=== PATIENT | female | born 1935 | race Caucasian/White ===

== ENCOUNTER 2019-03-29 14:46 | Inpatient (IN) ==
[2019-03-29] MEDS ORDERED: Ondansetron ODT 4 MG TAB.RAPDIS SL PRN (16:46)
[2019-03-29] MEDS ORDERED: Acetaminophen 325 MG TABLET PO PRN (16:46)
[2019-03-29] MEDS ORDERED: *HR* Promethazine 25 MG/ML VIAL IVP PRN (16:46)
[2019-03-29] MEDS ORDERED: Naloxone 0.4 MG/ML INJ IVP PRN (16:46)
[2019-03-29 17:31] LABS: Basophils % 0.2 %; Immature Granulocytes % 0.3 % (0-4)
[2019-03-29 17:39] LABS: Prothrombin Time 11.6 Seconds (9.4-12.1)
[2019-03-29 17:45] LABS: Eosinophils # 0.1 K/mcL (0.0-0.6); Eosinophils % 1.2 %; Hematocrit 36.4 % (35.3-44.9); Immature Platelets 4.6 % (1.1-6.1); Lymphocytes # 1.3 K/mcL (0.6-4.6); Lymphocytes % 14.9 %; Mean Corpuscular HGB Conc 31.3 g/dL (31.6-35.5); Mean Corpuscular Hemoglobin 29.5 pg (28.0-33.3); Mean Corpuscular Volume 94.1 fL (83.0-100.0); Mean Platelet Volume 10.5 fL (9.4-12.4); Monocytes # 0.5 K/mcL (0.0-1.3); Monocytes % 6.1 %; Neutrophils # 6.9 K/mcL (1.6-8.9); Platelet Count 222 K/mcL (140-400); Red Blood Count 3.87 M/mcL (3.82-4.97); Red Cell Distribution Width 13.2 % (11.5-14.5); Segmented Neutrophils % 77.3 %; White Blood Count 8.9 K/mcL (4.3-11.1)
--- NOTE | 2019-03-29 17:45 | Internal Med History&Physical ---
Date of Encounter: 03/29/19 Time of Encounter: 17:40 Internal Medicine - H&P: HPI Chief complaint: Nausea and Vomiting Admitted From: Home Plans for Post Hospital Care: Home History of present illness: Ms. Navarro is a 83 year old female with history of failure to thrive secondary to scoliosis and multiple fractures of her lower extremities leaving her chronically debilitated, chronic respiratory failure secondary to scoliosis on 3 L oxygen outpatient, and recurrent ileus presents with nausea and vomiting and concern for ileus. Patient lives with family but gets around the clock care. Caregivers noted that patient has had nausea and vomiting and it appears that emesis is fecal material. Recently fractured her left knee over Mother's Day and has not been able to transfer. Because of this, she has developed fecal impaction because she does not want to have bowel movements on a bedpan. Vomiting has resolved but patient still nauseous. Having some bilateral lower quadrant abdominal pain. Patient was transferred here from [place] in [place]. Probably had episode of A. fib with RVR at that hospital but vitals currently stable with heart rate of 77. KUB with dilation of loops of small bowel concerning for ileus. Patient apparently has had numerous ileus in the past after surgeries. Past Med Surg Social Fam HX - Past Medical History Medical history: arthritis, atrial fibrillation, CHF, COPD, GERD, hypertension, other Additional medical history: chronic pain, scoliosis, blind,hx of fx femur and knee on rt side. frequent uti, Psychiatric history: anxiety, depression - Past Surgical History Surgical History: cataract, cholecystectomy, hip replacement, orthopedic, other, other Additional surgical history: IM Nailing Bilateral, Right Femur and Knee Surgery, Bladder Surgery - Social History Smoking Status: Never smoker Smokeless Tobacco Status: No Alcohol use: none Drug use: none - Family History Sister History Unknown: Yes Living Status: Hx Family Cardiac Disorders: Yes Father Living Status: Mother Living Status: Internal Medicine - H&P: Meds Albuterol Sulfate [Albuterol Inhaler] 2 puff IH Q4HR PRN 07/19/15 [History] Aspirin 325 mg PO DAILY 07/19/15 [History] Cholecalciferol (Vitamin D3) [Vitamin D] 1,000 unit PO DAILY 07/19/15 [History] ClonazePAM [Klonopin] 1 mg PO TID 07/19/15 [History] Docusate [Colace] 100 mg PO BID 07/19/15 [History] Diltiazem CD (24hr) [Cardizem CD] 120 mg PO DAILY #30 cap.er.24h 07/29/15 [Rx] Omeprazole [PriLOSEC] 20 mg PO DAILY 09/08/15 [History] Oxygen 3 each .ROUTE AD 01/10/16 [History] OxyCODONE/APAP 5/325 [Percocet 5/325 MG] 1 each PO Q12HR PRN 08/13/18 [History] Polyethylene Glycol 3350 [MiraLAX] 17 gm PO DAILY 08/13/18 [History] Nitroglycerin 0.1 mg TD 0730 patch.td24 08/16/18 [Rx] OxyCODONE/APAP 10/325 [Percocet 10/325 MG] 1 each PO Q6HR #10 tablet 08/16/18 [Rx] BuPROPion [Wellbutrin] 75 mg PO BID 03/19/19 [History] Ciprofloxacin [Cipro] 500 mg PO BID #10 tablet 03/19/19 [Rx] Furosemide [Lasix] 20 mg PO DAILY 03/19/19 [History] Sennosides/Docusate Sodium [Docusate Sodium-Sennosides Tab] 1 each PO BID #14 tablet 03/19/19 [Rx] Allergy/AdvReac Type Severity Reaction Status Date / Time codeine Allergy Hives Verified 03/19/19 18:10 Penicillins [PCN] Allergy Rash Verified 03/19/19 18:10 Buspirone AdvReac Gastrointestinal Verified 03/19/19 18:10 Upset nitrofurantoin AdvReac Gastrointestinal Verified 03/19/19 18:10 [From Macrodantin] Upset promethazine AdvReac Confusion Verified 03/19/19 18:10 Sulfa (Sulfonamide AdvReac Rash Verified 03/19/19 18:10 Antibiotics) tramadol AdvReac Gastrointestinal Verified 03/19/19 18:10 Upset All Systems PM: A 10-system review of systems was performed and is negative for pertinent findings except as documented above in the HPI. Review of systems: General: Fevers / Chills / Weight loss / Night sweats Eyes: Blurry Vision / Change in Vision HENT: Ear Pain / Ear Drainage / Rhinorrhea / Throat Pain / Lymphadenopathy Cardiovascular: Chest Pain / Palpatations / Orthopnea / AGRAWAL / Weight gain Lungs: Dyspnea / Wheezing / Cough / Sputum production / Pleurisy Abdomen: Abdomen pain / Abdominal distention / Nausea / Vomiting / Diarrhea / Const : Dysuria / Urinary Frequency / Urinary Urgency / Hematuria Extremities: LE edema / Ext pain / Ext erythema Skin: Rashes / Abrasions / Contusions Psych: Hallucinations / Anxiety / Depression Neuro: Weakness / Numbness / Tingling / Facial Droop / Dysphagia - Constitutional Vitals: Temp Pulse Resp BP Pulse Ox 98.0 F 77 16 147/80 97 03/29/19 17:05 03/29/19 17:05 03/29/19 17:05 03/29/19 17:05 03/29/19 17:05 Exam: General: Ill-appearing and in no acute distress. Appears chronically ill with severe scoliosis HEENT: No erythema of posterior pharynx. No exudates. Lymphatics: No mandibular or cervical lymphadenopathy Cardiovascular: RRR. No murmurs. No chest wall tenderness. Lungs: Clear to auscelltation bilaterally. Regular chest rise. Abdomen: Distended with mild lower quadrant tenderness. No rebound or gaurding. Nl bowel sounds. Extremities: No edema. 2+ pulses radial and pedal pulses Skin: No rahses, abrasions, or contusions. Nl cap refill. Psych: Nl attention. A&Ox3 Neuro: turkey pinner II-XII intact. Sensation to light touch and pinprick intact. Internal Med - H&P Results - Labs CBC & Chem 7: 03/29/19 17:13 03/29/19 17:13 - Impressions ITS Impressions Chest X-Ray 03/29/19 16:44 IMPRESSION: Examination is significantly compromised due to marked scoliosis. Within this limitation, no definite cardiopulmonary abnormality. D/ / Lorrie Pina MD / Lorrie Pina MD Interpreting Provider: Lorrie Pina MD - Assessment and Plan (1) Ileus, unspecified Current Visit: Yes Status: Acute Assessment and plan: Patient with history of ileus following surgeries and recent inability to transfer resulting in fecal impaction presents with concern for vomiting fecal material in the setting of KUB with evidence of small bowel ileus. -Likely fecal impaction possibly with some degree of ileus -Per daughter, this all started when patient broke her knee because she lost the ability to transfer and refuses to have a BM in a bedpan -Suspect this will resolve with aggressive bowel regimen from below PLAN: - Suppository once. If does not work, enema once. - Scheduled senna - Repeat KUB in the morning - If develops nausea vomiting overnight will place NG tube - If does not resolve by tomorrow may consult surgery for further recommendations (2) Fecal impaction Current Visit: Yes Status: Acute Assessment and plan: See above (3) Atrial fibrillation with RVR Current Visit: Yes Status: Acute Assessment and plan: History of atrial fibrillation on diltiazem. Had episode of RVR at outside hospital and briefly needed diltiazem drip. Rates currently controlled. - Continue home diltiazem - If rates higher overnight, treat with IV pushes of diltiazem (4) Failure to thrive Current Visit: Yes Status: Acute Assessment and plan: History of failure to thrive secondary to scoliosis and multiple fractures of her lower extremities leaving her chronically debilitated. - May need resources for higher level of care before discharge Qualifiers: Failure to thrive age range: in adult Qualified Code(s): R62.7 - Adult failure to thrive - Time Spent With Patient Total time spent is greater than 50% in coordination of care (as documented) at patient's floor/unit and/or counseling patient: Greater than 35 minutes
[2019-03-29 17:49] LABS: Hemoglobin 11.4 g/dL (11.5-15.4)
[2019-03-29 17:56] LABS: Alanine Aminotransferase 6 Units/L (7-52); Albumin 3.5 g/dL (3.5-5.7); Albumin/Globulin Ratio 1.3 (1.1-2.2); Alkaline Phosphatase 66 Units/L (34-104); Aspartate Amino Transferase 17 Units/L (13-39); BUN/Creatinine Ratio 17 (6-26); Bilirubin,Total 0.3 mg/dL (0.3-1.0); Blood Urea Nitrogen 13 mg/dL (8-23); Calcium 8.9 mg/dL (8.6-10.3); Carbon Dioxide 31 mEq/L (23-29); Chloride 96 mEq/L (98-107); Globulin 2.8 g/dL (2.4-3.5); Glucose 92 mg/dL (70-105); Osmolality,Calculated 296 (280-300); Potassium 4.1 mEq/L (3.5-5.1); Sodium 143 mEq/L (136-145); Total Protein 6.3 g/dL (6.4-8.9); Troponin I 0.04 ng/mL (< 0.04); eGFR For African Americans > 60 (> 60); eGFR For Non-African Americans > 60 (> 60)
[2019-03-29] MEDS ORDERED: Milk and Molasses Enema 200 ML RC ONE (18:15)
[2019-03-29] MEDS ORDERED: *HR* OxyCODONE/APAP 5/325 TABLET PO PRN (18:16)
[2019-03-29] MEDS: Sennosides/Docusate Sodium TABLET PO SCH (22:25)
[2019-03-29] MEDS: clonazePAM 1 MG TABLET PO SCH (22:25)
[2019-03-30 05:36] LABS: Basophils % 0.2 %; Eosinophils # 0.1 K/mcL (0.0-0.6); Immature Granulocytes % 0.4 % (0-4); Lymphocytes # 1.3 K/mcL (0.6-4.6); Lymphocytes % 13.7 %; Mean Corpuscular HGB Conc 31.3 g/dL (31.6-35.5); Mean Corpuscular Hemoglobin 29.4 pg (28.0-33.3); Mean Corpuscular Volume 94.1 fL (83.0-100.0); Mean Platelet Volume 10.2 fL (9.4-12.4); Monocytes # 0.7 K/mcL (0.0-1.3); Monocytes % 7.3 %; Neutrophils # 7.2 K/mcL (1.6-8.9); Platelet Count 214 K/mcL (140-400); Red Cell Distribution Width 13.1 % (11.5-14.5); Segmented Neutrophils % 77.4 %; White Blood Count 9.4 K/mcL (4.3-11.1)
[2019-03-30 05:56] LABS: BUN/Creatinine Ratio 19 (6-26); Blood Urea Nitrogen 13 mg/dL (8-23); Calcium 8.8 mg/dL (8.6-10.3); Carbon Dioxide 30 mEq/L (23-29); Chloride 100 mEq/L (98-107); Glucose 89 mg/dL (70-105); Osmolality,Calculated 290 (280-300); Potassium 3.7 mEq/L (3.5-5.1); Sodium 140 mEq/L (136-145); eGFR For African Americans > 60 (> 60); eGFR For Non-African Americans > 60 (> 60)
--- NOTE | 2019-03-30 08:12 | Internal Med Progress Note ---
Hospitalist Progress Note - Encounter Date of Encounter: 03/30/19 Time of Encounter: 08:09 - Subjective Interval History: Reportedly had a large BM this morning. Denies nausea and abdominal pain. Taking oral medications. - Exam Vitals: Temp Pulse Resp BP Pulse Ox 98.1 F 85 16 151/77 96 03/30/19 06:53 03/30/19 06:53 03/30/19 06:53 03/30/19 06:53 03/30/19 06:53 Exam: General: Ill-appearing and in no acute distress. Appears chronically ill with severe scoliosis HEENT: No erythema of posterior pharynx. No exudates. Lymphatics: No mandibular or cervical lymphadenopathy Cardiovascular: RRR. No murmurs. No chest wall tenderness. Lungs: Clear to auscelltation bilaterally. Regular chest rise. Abdomen: Distended with mild lower quadrant tenderness. No rebound or gaurding. Nl bowel sounds. Extremities: No edema. 2+ pulses radial and pedal pulses Skin: No rahses, abrasions, or contusions. Nl cap refill. Psych: Nl attention. A&Ox3 Neuro: ad writer II-XII intact. Sensation to light touch and pinprick intact. - Assessment and Plan (1) Ileus, unspecified Current Visit: Yes Status: Acute Assessment and Plan: Patient with history of ileus following surgeries and recent inability to transfer resulting in fecal impaction presents with concern for vomiting fecal material in the setting of KUB with evidence of small bowel ileus. -Likely fecal impaction possibly with some degree of ileus -Per daughter, this all started when patient broke her knee because she lost the ability to transfer and refuses to have a BM in a bedpan -Suspect this will resolve with aggressive bowel regimen from below -Patient had large BM this morning. Will start laxatives from above and repeat KUB to monitor stool burden PLAN: - Scheduled senna and lactulose - KUB - If develops nausea vomiting will place NG tube (2) Fecal impaction Current Visit: Yes Status: Acute Assessment and Plan: See above (3) Atrial fibrillation with RVR Current Visit: Yes Status: Acute Assessment and Plan: History of atrial fibrillation on diltiazem. Had episode of RVR at outside hospital and briefly needed diltiazem drip. Rates currently controlled. - Continue home diltiazem (4) Failure to thrive Current Visit: Yes Status: Acute Assessment and Plan: History of failure to thrive secondary to scoliosis and multiple fractures of her lower extremities leaving her chronically debilitated. - May need resources for higher level of care before discharge DVT Prophylaxis: LMWH - Time Spent with Patient Total time spent is greater than 50% in coordination of care (as documented) at patient's floor/unit and/or counseling patient: 25 - 35 minutes Plan of Care Discussed with: patient Internal Medicine: Result - Labs CBC & Chem 7: 03/30/19 05:18 03/30/19 05:18 Labs: Short CBC 03/29/19 03/30/19 Range/Units 17:13 05:18 WBC 8.9 9.4 (4.3-11.1) K/mcL Hgb 11.4 L D 10.0 L (11.5-15.4) g/dL Hct 36.4 32.0 L (35.3-44.9) % Plt Count 222 214 (140-400) K/mcL Neutrophils # 6.9 7.2 (1.6-8.9) K/mcL BMP 03/29/19 03/30/19 17:13 05:18 Sodium 143 140 Potassium 4.1 3.7 Chloride 96 L 100 Carbon Dioxide 31 H 30 H BUN 13 13 Creatinine 0.77 0.70 Glucose 92 89 Calcium 8.9 8.8 Cardiac Enzymes 03/29/19 Range/Units 17:13 Troponin I 0.04 H* (< 0.04) ng/mL Liver Function 03/29/19 Range/Units 17:13 Total Bilirubin 0.3 (0.3-1.0) mg/dL AST 17 (13-39) Units/L ALT 6 L (7-52) Units/L Alkaline Phosphatase 66 (34-104) Units/L Albumin 3.5 (3.5-5.7) g/dL - ABG Interpretation ABG results: PT/INR, D-dimer PT 11.6 Seconds (9.4-12.1) 03/29/19 17:13 - Impressions Impressions Chest X-Ray 03/29/19 16:44 IMPRESSION: Examination is significantly compromised due to marked scoliosis. Within this limitation, no definite cardiopulmonary abnormality. D/ / Lorrie Pina MD / Lorrie Pina MD Interpreting Provider: Lorrie Pina MD Consult Discharge Plan - Plan Referrals: Thierno Chen MD [Primary Care Provider] - (4) Failure to thrive Qualifiers: Failure to thrive age range: in adult Qualified Code(s): R62.7 - Adult failure to thrive
[2019-03-30] MEDS: Aspirin 325 MG TABLET PO SCH (08:16)
[2019-03-30] MEDS: clonazePAM 1 MG TABLET PO SCH ×3 (08:16→20:19)
[2019-03-30] MEDS: Furosemide 20 MG TABLET PO SCH (08:16)
[2019-03-30] MEDS: Sennosides/Docusate Sodium TABLET PO SCH ×2 (08:16→20:19)
[2019-03-30] MEDS: Bisacodyl 10 MG RECTAL SUPPOSITORY RC SCH (08:17)
[2019-03-30] MEDS: Lactulose Oral Soln 20 GM/30 ML UDC PO SCH ×3 (08:17→20:19)
[2019-03-30] MEDS ORDERED: Diltiazem CD (24hr) 120 MG CAPSULE PO SCH (09:00)
[2019-03-30] MEDS ORDERED: *HR* Metoprolol 5 MG/5 ML VIAL IVP ONE (21:27)
[2019-03-30] MEDS ORDERED: *HR* Metoprolol 5 MG/5 ML VIAL IVP PRN (21:46)
[2019-03-30] MEDS ORDERED: 0.9 % Sodium Chloride 250 ML IV ONE (23:06)
[2019-03-31] MEDS: *HR* Enoxaparin 40 MG/0.4 ML SYRINGE SQ SCH (05:56)
[2019-03-31] MEDS: clonazePAM 1 MG TABLET PO SCH ×3 (08:22→20:01)
[2019-03-31] MEDS: Sennosides/Docusate Sodium TABLET PO SCH ×2 (08:22→20:01)
[2019-03-31] MEDS: Lactulose Oral Soln 20 GM/30 ML UDC PO SCH ×2 (08:23→20:00)
[2019-03-31] MEDS: Furosemide 20 MG TABLET PO SCH (08:23)
[2019-03-31] MEDS: Aspirin 325 MG TABLET PO SCH (08:23)
[2019-03-31] MEDS: Bisacodyl 10 MG RECTAL SUPPOSITORY RC SCH (08:23)
[2019-03-31] MEDS ORDERED: Ringers Solution, Lactated 500 ML IVC ONE (11:06)
--- NOTE | 2019-03-31 11:15 | Internal Med Progress Note ---
Hospitalist Progress Note - Encounter Date of Encounter: 03/31/19 Time of Encounter: 11:12 - Subjective Interval History: Patient has had multiple bowel movements over the last 24 hours. KUB this morning with resolution of ileus and no stool seen in bowel. Patient denies nausea or pains morning. Talked to daughter over the phone and will not be able to set up caregiving until tomorrow morning so request the patient's in the hospital until tomorrow. - Exam Vitals: Temp Pulse Resp BP Pulse Ox 98.3 F 74 16 153/81 96 03/31/19 07:00 03/31/19 07:00 03/31/19 07:00 03/31/19 07:00 03/31/19 07:00 Exam: General: Ill-appearing and in no acute distress. Appears chronically ill with severe scoliosis HEENT: No erythema of posterior pharynx. No exudates. Lymphatics: No mandibular or cervical lymphadenopathy Cardiovascular: RRR. No murmurs. No chest wall tenderness. Lungs: Clear to auscelltation bilaterally. Regular chest rise. Abdomen: Distended with mild lower quadrant tenderness. No rebound or gaurding. Nl bowel sounds. Extremities: No edema. 2+ pulses radial and pedal pulses Skin: No rahses, abrasions, or contusions. Nl cap refill. Psych: Nl attention. A&Ox3 Neuro: mixer operator tablets II-XII intact. Sensation to light touch and pinprick intact. - Assessment and Plan (1) Ileus, unspecified Current Visit: Yes Status: Acute Assessment and Plan: Patient with history of ileus following surgeries and recent inability to transfer resulting in fecal impaction presents with concern for vomiting fecal material in the setting of KUB with evidence of small bowel ileus. -Likely fecal impaction possibly with some degree of ileus -Per daughter, this all started when patient broke her knee because she lost the ability to transfer and refuses to have a BM in a bedpan -Suspect this will resolve with aggressive bowel regimen from below -Patient with many large bowel movements over the last 24 hours and KUB with resolution of ileus. Back off on bowel regimen. PLAN: - Scheduled senna and lactulose tid --> bid - Daughter told to get swanson up to commode once per day to try to get her to have a bowel movement at home (2) Fecal impaction Current Visit: Yes Status: Acute Assessment and Plan: See above (3) Atrial fibrillation with RVR Current Visit: Yes Status: Acute Assessment and Plan: History of atrial fibrillation on diltiazem. Had episode of RVR at outside hospital and briefly needed diltiazem drip. Rates currently controlled. - Continue home diltiazem (4) Failure to thrive Current Visit: Yes Status: Acute Assessment and Plan: History of failure to thrive secondary to scoliosis and multiple fractures of her lower extremities leaving her chronically debilitated. Daughter inquiring about status of right knee (previously fractured) to see if it is stable enough for transfers to the [facility]. We will repeat x-ray of this today. - May need resources for higher level of care before discharge Internal Medicine: Result - Labs CBC & Chem 7: 03/30/19 05:18 03/30/19 05:18 - ABG Interpretation ABG results: PT/INR, D-dimer PT 11.6 Seconds (9.4-12.1) 03/29/19 17:13 - Impressions Impressions KUB X-Ray 03/31/19 07:09 IMPRESSION: 1. No significant stool burden 2. Decreased distention of small bowel loops D/ / Marcelino Ventura MD / Marcelino Ventura MD Interpreting Provider: Marcelino Ventura MD Consult Discharge Plan - Plan Referrals: Thierno Chen MD [Primary Care Provider] - (4) Failure to thrive Qualifiers: Failure to thrive age range: in adult Qualified Code(s): R62.7 - Adult failure to thrive
[2019-04-01] MEDS: *HR* Enoxaparin 40 MG/0.4 ML SYRINGE SQ SCH (05:54)
[2019-04-01] MEDS ORDERED: *HR* OxyCODONE/APAP 5/325 TABLET PO PRN (07:29)
[2019-04-01] MEDS: clonazePAM 1 MG TABLET PO SCH ×3 (07:54→20:55)
[2019-04-01] MEDS: Diltiazem CD (24hr) 120 MG CAPSULE PO SCH ×2 (07:54→07:56)
[2019-04-01] MEDS: Lactulose Oral Soln 20 GM/30 ML UDC PO SCH ×2 (07:54→20:56)
[2019-04-01] MEDS: Bisacodyl 10 MG RECTAL SUPPOSITORY RC SCH (07:54)
[2019-04-01] MEDS: Sennosides/Docusate Sodium TABLET PO SCH ×2 (07:54→20:56)
[2019-04-01] MEDS: Aspirin 325 MG TABLET PO SCH (07:54)
[2019-04-01] MEDS: Furosemide 20 MG TABLET PO SCH (07:54)
--- NOTE | 2019-04-01 10:44 | Electrocardiograph Report ---
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
--- NOTE | 2019-04-01 12:38 | Discharge Summary ---
Date of Encounter: 04/01/19 Time of Encounter: 12:34 - Discharge Diagnosis (1) Ileus, unspecified Priority: Primary Status: Acute (2) Fecal impaction Priority: Secondary Status: Acute (3) Atrial fibrillation with RVR Priority: Secondary Status: Acute (4) Failure to thrive Priority: Secondary Status: Acute Qualifiers: Failure to thrive age range: in adult Qualified Code(s): R62.7 - Adult failure to thrive Hospital course: Ms. Navarro is a 83 year old female with history of ileus following surgeries and multiple LE fractues resulting in inability to transfer resulting in fecal impaction presents with concern for vomiting fecal material in the setting of KUB with evidence of small bowel ileus. Patient is status post an aggressive bowel regimen and had many large bowel movements during admission with follow-up KUB with resolution of ileus. Figure primary reason patient got fecal impaction was due to inability to transfer to a commode after she broke her right distal femur/proximal tibia and refusal to defecate into a bedpan. Repeat right knee imaging with evidence of healing - should be okay for patient to transfer to a commode although may be limited by pain. Also did not like MiraLAX so was not taking it - switched to lactulose in the hospital and for discharge for goal of 1-2 bowel movements per day. Also on oxycodone at home. Encouraged daughter to only give pain medication when patient is pain. She will follow-up with her primary care provider. Discharge discussed with: family - Time Spent with Patient Total time spent providing and/or coordinating discharge services: - Discharge Medications Prescriptions: New Lactulose 10 gm PO BID #2 bottle Continued Diltiazem CD (24hr) [Cardizem CD] 120 mg PO DAILY #30 cap.er.24h Cholecalciferol (Vitamin D3) [Vitamin D] 1,000 unit PO DAILY Aspirin 325 mg PO BID Albuterol Sulfate [Albuterol Inhaler] 2 puff IH Q4HR PRN PRN Reason: Shortness Of Breath Docusate [Colace] 100 mg PO BID PRN PRN Reason: Constipation ClonazePAM [Klonopin] 1 mg PO TID Omeprazole [PriLOSEC] 20 mg PO DAILY OxyCODONE/APAP 5/325 [Percocet 5/325 MG] 1 each PO BID PRN PRN Reason: Breakthrough Pain OxyCODONE/APAP 10/325 [Percocet 10/325 MG] 1 each PO Q6HR #10 tablet Nitroglycerin 0.1 mg TD 0730 patch.td24 BuPROPion [Wellbutrin] 75 mg PO BID Sennosides/Docusate Sodium [Docusate Sodium-Sennosides Tab] 1 each PO BID #14 tablet Discontinued Amoxicillin [Amoxil] 500 mg PO BID Polyethylene Glycol 3350 [MiraLAX] 17 gm PO DAILY PRN PRN Reason: Constipation Home Medications: Albuterol Sulfate [Albuterol Inhaler] 2 puff IH Q4HR PRN 07/19/15 [History] Aspirin 325 mg PO BID 07/19/15 [History] Cholecalciferol (Vitamin D3) [Vitamin D] 1,000 unit PO DAILY 07/19/15 [History] ClonazePAM [Klonopin] 1 mg PO TID 07/19/15 [History] Docusate [Colace] 100 mg PO BID PRN 07/19/15 [History] Diltiazem CD (24hr) [Cardizem CD] 120 mg PO DAILY #30 cap.er.24h 07/29/15 [Rx] Omeprazole [PriLOSEC] 20 mg PO DAILY 09/08/15 [History] OxyCODONE/APAP 5/325 [Percocet 5/325 MG] 1 each PO BID PRN 08/13/18 [History] Nitroglycerin 0.1 mg TD 0730 patch.td24 08/16/18 [Rx] OxyCODONE/APAP 10/325 [Percocet 10/325 MG] 1 each PO Q6HR #10 tablet 08/16/18 [Rx] BuPROPion [Wellbutrin] 75 mg PO BID 03/19/19 [History] Sennosides/Docusate Sodium [Docusate Sodium-Sennosides Tab] 1 each PO BID #14 tablet 03/19/19 [Rx] Lactulose 10 gm PO BID #2 bottle 04/01/19 [Rx] Allergies/Adverse Reactions: Allergy/AdvReac Type Severity Reaction Status Date / Time codeine Allergy Hives Verified 03/19/19 18:10 Penicillins [PCN] Allergy Rash Verified 03/19/19 18:10 Buspirone AdvReac Gastrointestinal Verified 03/19/19 18:10 Upset nitrofurantoin AdvReac Gastrointestinal Verified 03/19/19 18:10 [From Macrodantin] Upset promethazine AdvReac Confusion Verified 03/19/19 18:10 Sulfa (Sulfonamide AdvReac Rash Verified 03/19/19 18:10 Antibiotics) tramadol AdvReac Gastrointestinal Verified 03/19/19 18:10 Upset Date of admission: 03/29/19 16:19 Primary care physician: Thierno Chen MD Consults: 03/29/19 18:18 Consult to Crusher Plant Operator [CONS] Routine Reason for SW Consult: Home helpers HH, Sen's oxygen - Constitutional Vitals: Temp Pulse Resp BP Pulse Ox 98.4 F 83 20 137/78 98 04/01/19 11:14 04/01/19 11:14 04/01/19 11:14 04/01/19 11:14 04/01/19 11:14 Exam: General: Ill-appearing and in no acute distress. Appears chronically ill with severe scoliosis HEENT: No erythema of posterior pharynx. No exudates. Lymphatics: No mandibular or cervical lymphadenopathy Cardiovascular: RRR. No murmurs. No chest wall tenderness. Lungs: Clear to auscelltation bilaterally. Regular chest rise. Abdomen: Distended with mild lower quadrant tenderness. No rebound or gaurding. Nl bowel sounds. Extremities: No edema. 2+ pulses radial and pedal pulses Skin: No rahses, abrasions, or contusions. Nl cap refill. Psych: Nl attention. A&Ox3 Neuro: mechanical test technician II-XII intact. Sensation to light touch and pinprick intact. - Patient Status Disposition: Home, Self-Care Condition: Good Functional capacity at discharge: bed bound Overall status at discharge: patient is back to baseline - Discharge Instructions Follow Up With: Thierno Chen MD [Primary Care Provider] - - Diet and Activity Activity: resume usual activities as tolerated Diet: regular diet
[2019-04-01] MEDS ORDERED: *HR* Metoprolol 5 MG/5 ML VIAL IVP ONE (13:16)
--- NOTE | 2019-04-01 14:05 | Internal Med Progress Note ---
Hospitalist Progress Note - Encounter Date of Encounter: 04/01/19 Time of Encounter: 14:03 - Subjective Interval History: Patient did not discharge today because flipped into atrila fibrillation with RVR. BP stable. Daughter says patient "doesn't look right" - Exam Vitals: Temp Pulse Resp BP Pulse Ox 97.9 F 83 20 104/67 98 04/01/19 13:30 04/01/19 11:14 04/01/19 11:14 04/01/19 13:30 04/01/19 11:14 Exam: General: Ill-appearing and in no acute distress. Appears chronically ill with severe scoliosis HEENT: No erythema of posterior pharynx. No exudates. Lymphatics: No mandibular or cervical lymphadenopathy Cardiovascular: RRR. No murmurs. No chest wall tenderness. Lungs: Clear to auscelltation bilaterally. Regular chest rise. Abdomen: Distended with mild lower quadrant tenderness. No rebound or gaurding. Nl bowel sounds. Extremities: No edema. 2+ pulses radial and pedal pulses Skin: No rahses, abrasions, or contusions. Nl cap refill. Psych: Nl attention. 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 Sensation to light touch and pinprick intact. - Assessment and Plan (1) Atrial fibrillation with RVR Current Visit: Yes Status: Acute Assessment and Plan: History of atrial fibrillation on diltiazem. Had episode of RVR at outside hospital and briefly needed diltiazem drip. Flipped into RVR this morning. Diltiazem was held yesterday for unclear reasons. Feel that once she is back stable on her home diltiazem should stabilize. - Continue home diltiazem - Metoprolol pushes prn (2) Ileus, unspecified Current Visit: Yes Status: Acute Assessment and Plan: Patient with history of ileus following surgeries and recent inability to transfer resulting in fecal impaction presents with concern for vomiting fecal material in the setting of KUB with evidence of small bowel ileus. -Likely fecal impaction possibly with some degree of ileus -Per daughter, this all started when patient broke her knee because she lost the ability to transfer and refuses to have a BM in a bedpan -Suspect this will resolve with aggressive bowel regimen from below -Patient with many large bowel movements over the last 24 hours and KUB with resolution of ileus. PLAN: - Scheduled senna and lactulose bid - Daughter told to get swanson up to commode once per day to try to get her to have a bowel movement at home (3) Fecal impaction Current Visit: Yes Status: Acute Assessment and Plan: See above (4) Failure to thrive Current Visit: Yes Status: Acute Assessment and Plan: History of failure to thrive secondary to scoliosis and multiple fractures of her lower extremities leaving her chronically debilitated. - May need resources for higher level of care before discharge Internal Medicine: Result - Labs CBC & Chem 7: 03/30/19 05:18 03/30/19 05:18 - ABG Interpretation ABG results: PT/INR, D-dimer PT 11.6 Seconds (9.4-12.1) 03/29/19 17:13 Consult Discharge Plan - Plan Referrals: Thierno Chen MD [Primary Care Provider] - Prescriptions: Lactulose 10 gm PO BID #2 bottle (4) Failure to thrive Qualifiers: Failure to thrive age range: in adult Qualified Code(s): R62.7 - Adult failure to thrive
[2019-04-01] MEDS ORDERED: Dextrose Gel 15 GM/37.5 ML TUBE PO PRN (17:01)
[2019-04-01] MEDS ORDERED: *HR* Heparin 5,000 UNIT/ML VIAL IVP PRN ×2 (17:04)
[2019-04-01] MEDS ORDERED: *HR* Heparin 5,000 UNIT/ML VIAL IVP ONE (17:04)
[2019-04-01] MEDS ORDERED: Isovue-370 500 ML BOTTLE IVP ONE (17:10)
[2019-04-01] MEDS ORDERED: Heparin 25,000 UNIT/250 ML D5W 25,000 UNIT/250 ML IV.SOLN IVC SCH (17:15)
[2019-04-01] MEDS: Nafcillin 2,000 MG in D5% in Water (Mini-Bag+) 100 ML IVPB SCH ×2 (18:41→23:58)
[2019-04-02 04:49] LABS: Hematocrit 35.2 % (35.3-44.9); Hemoglobin 11.3 g/dL (11.5-15.4); Mean Corpuscular HGB Conc 32.1 g/dL (31.6-35.5); Mean Corpuscular Hemoglobin 29.3 pg (28.0-33.3); Mean Corpuscular Volume 91.2 fL (83.0-100.0); Mean Platelet Volume 10.8 fL (9.4-12.4); Platelet Count 254 K/mcL (140-400); Red Blood Count 3.86 M/mcL (3.82-4.97); Red Cell Distribution Width 13.2 % (11.5-14.5); White Blood Count 9.1 K/mcL (4.3-11.1)
[2019-04-02 05:09] LABS: BUN/Creatinine Ratio 23 (6-26); Blood Urea Nitrogen 19 mg/dL (8-23); Calcium 8.9 mg/dL (8.6-10.3); Carbon Dioxide 38 mEq/L (23-29); Chloride 92 mEq/L (98-107); Glucose 119 mg/dL (70-105); Osmolality,Calculated 287 (280-300); Potassium 2.8 mEq/L (3.5-5.1); Sodium 137 mEq/L (136-145); eGFR For African Americans > 60 (> 60); eGFR For Non-African Americans > 60 (> 60)
[2019-04-02] MEDS: Nafcillin 2,000 MG in D5% in Water (Mini-Bag+) 100 ML IVPB SCH ×2 (06:01→12:03)
[2019-04-02] MEDS ORDERED: Insulin LISPRO 300 UNITS/3 ML VIAL SQ SCH (07:30)
[2019-04-02] MEDS: Lactulose Oral Soln 20 GM/30 ML UDC PO SCH ×2 (08:55→20:46)
[2019-04-02] MEDS: clonazePAM 1 MG TABLET PO SCH ×3 (08:56→20:45)
[2019-04-02] MEDS: Aspirin 325 MG TABLET PO SCH ×2 (08:56→09:03)
[2019-04-02] MEDS: Sennosides/Docusate Sodium TABLET PO SCH ×2 (08:56→20:45)
[2019-04-02] MEDS: Diltiazem CD (24hr) 120 MG CAPSULE PO SCH (09:03)
[2019-04-02] MEDS: Bisacodyl 10 MG RECTAL SUPPOSITORY RC SCH (09:05)
--- NOTE | 2019-04-02 09:41 | Infectious Disease Consult ---
Infectious Disease-Consult - Encounter Date/Time Date of Encounter: 04/02/19 Time of Encounter: 09:37 - Data of Consult Patient: new to practice Reason for consult: "MSSA in urine, concern for MSSA bacteremia of unknwon etiolog" Consult date: 04/02/19 Requesting Physician: Marcelino Hilton Primary Care Provider: Thierno Chen MD - HPI HPI: Ms. Navarro is an 83 year old female with a past medical history of FTT secondary to chronic debilitation from scoliosis, multiple compression fractures and lower extremity fractures, a-fib, CHF, COPD on O2 at home, GERD, HTN, and anxiety/depression. The patient was admitted to the hospital 03/29/19 for elevated troponin. We are consulted 04/02/19 for MSSA in the urine. Briefly, the patient is an 83-year-old female with past medical history as stated above. Patient presented to [facility] emergency department complaints of abdominal pain and vomiting what appeared to be fecal material. Upon arrival, she was afebrile. She is noted to be in A. fib RVR with a heart rate of 150. She was otherwise hemodynamically stable. Laboratory studies revealed a normal white blood cell count, and renal function. Troponin was mildly elevated at 0.06. She had an acute abdominal series that showed a moderate fecal impaction in the ascending colon and rectum as well as findings consistent with an ileus. Urinalysis was obtained and was positive for trace leukocyte esterase, 3-5 white blood cells, bacteria, and many epithelial cells. She was transferred to [facility] for further evaluation and treatment. Since admission, the patient has remained afebrile. Her white blood cell count has remained normal. Blood cultures obtained on 03/29/19 are no growth to date. Should chest x-ray that was negative. Culture obtained in the emergency department is positive for MSSA. The patient was started on an aggressive bowel regimen by the primary team and has experienced resolution of her fecal impaction and has had multiple bowel movements. She had a CT of the chest, abdomen, and pelvis that showed findings consistent with mild enterocolitis as well as atelectasis bilaterally. Repeat blood cultures obtained 04/01/19 are pending 2 sets. She was started on nafcillin yesterday when her urine culture came back positive. She has a transthoracic echocardiogram that is pending. We have asked to evaluate and make further recommendations. - ROS Review of Systems: All systems reviewed and no additional remarkable complaints except as stated. - Results CBC & Chem 7: 04/02/19 04:18 04/02/19 04:18 - Exam Vitals: Temp Pulse Resp BP Pulse Ox 97.7 F 75 20 129/72 99 04/02/19 06:44 04/02/19 06:44 04/02/19 06:44 04/02/19 06:44 04/02/19 06:44 Exam: Head: Atraumatic, normal inspection, normocephalic. Eye: EOMI, PERRLA, no scleral icterus noted. ENT: Mucous membranes moist. No odontogenic infection noted. Neck: Normal inspection, no meningismus. Respiratory: Clear to auscultation. No rales, respiratory distress, rhonchi, or wheezes noted. Cardiovascular: Regular rate and rhythm, S1 and S2 audible. No murmurs, rubs, or gallops. GI: Soft, nondistended, normal bowel sounds. Extremities:No joint swelling, pedal edema, or tenderness noted. Back: Normal inspection. No vertebral tenderness noted. Neurological: Alert, oriented 3, no focal deficits. Psychiatric: normal affect, normal mood. Skin: Dry, intact, warm. Normal color. No rashes. Albuterol Sulfate [Albuterol Inhaler] 2 puff IH Q4HR PRN 07/19/15 [History] Aspirin 325 mg PO BID 07/19/15 [History] Cholecalciferol (Vitamin D3) [Vitamin D] 1,000 unit PO DAILY 07/19/15 [History] ClonazePAM [Klonopin] 1 mg PO TID 07/19/15 [History] Docusate [Colace] 100 mg PO BID PRN 07/19/15 [History] Diltiazem CD (24hr) [Cardizem CD] 120 mg PO DAILY #30 cap.er.24h 07/29/15 [Rx] Omeprazole [PriLOSEC] 20 mg PO DAILY 09/08/15 [History] OxyCODONE/APAP 5/325 [Percocet 5/325 MG] 1 each PO BID PRN 08/13/18 [History] Nitroglycerin 0.1 mg TD 0730 patch.td24 08/16/18 [Rx] OxyCODONE/APAP 10/325 [Percocet 10/325 MG] 1 each PO Q6HR #10 tablet 08/16/18 [Rx] BuPROPion [Wellbutrin] 75 mg PO BID 03/19/19 [History] Sennosides/Docusate Sodium [Docusate Sodium-Sennosides Tab] 1 each PO BID #14 tablet 03/19/19 [Rx] Lactulose 10 gm PO BID #2 bottle 04/01/19 [Rx] Allergy/AdvReac Type Severity Reaction Status Date / Time codeine Allergy Hives Verified 03/19/19 18:10 Buspirone AdvReac Gastrointestinal Verified 03/19/19 18:10 Upset nitrofurantoin AdvReac Gastrointestinal Verified 03/19/19 18:10 [From Macrodantin] Upset promethazine AdvReac Confusion Verified 03/19/19 18:10 Sulfa (Sulfonamide AdvReac Rash Verified 03/19/19 18:10 Antibiotics) tramadol AdvReac Gastrointestinal Verified 03/19/19 18:10 Upset - Assessment and Plan (1) Urinary tract infection Current Visit: No Status: Acute Asymptomatic bacteriuria vs. true infection. The patient has no urinary symptoms. Urine culture positive for MSSA. Urinalysis appeared contaminated (many epithelial cells). Blood cultures drawn 03/29/19 are NGTD x 2 sets. Repeat blood cultures drawn 04/01/19 are pending x 2 sets. Tachycardic, but no other SIRS criteria. Currently on IV Nafcillin. Qualifiers: Urinary tract infection type: site unspecified Hematuria presence: without hematuria Qualified Code(s): N39.0 - Urinary tract infection, site not specified SNOMED Code(s): 50903567 (2) Ileus, unspecified Current Visit: Yes Status: Acute Likely secondary to fecal impaction. CT abdomen and pelvis shows improvement. Having bowel movements and no more vomiting. Management per the primary team. SNOMED Code(s): 47537868 (3) Hypokalemia Current Visit: No Status: Resolved Likely secondary to poor PO intake. Replacement per the primary team. SNOMED Code(s): 53689548 (4) Fecal impaction Current Visit: Yes Status: Acute Likely multifactorial: poor mobility, refusing to use bedpan for BM, narcotic pain medications. Improved per imaging. Bowel regimen per the primary team. SNOMED Code(s): 77356574 (5) Elevated troponin Current Visit: No Status: Acute SNOMED Code(s): 314903274, 816838306, 697446397 (6) Atrial fibrillation with RVR Current Visit: Yes Status: Acute SNOMED Code(s): 137864861388237 (7) Failure to thrive Current Visit: Yes Status: Chronic Qualifiers: Failure to thrive age range: in adult Qualified Code(s): R62.7 - Adult failure to thrive SNOMED Code(s): 49193436 (8) COPD (chronic obstructive pulmonary disease) Current Visit: No Status: Chronic Qualifiers: COPD type: emphysema Qualified Code(s): J43.9 - Emphysema, unspecified SNOMED Code(s): 71210994 (9) Hypertension Current Visit: No Status: Chronic Qualifiers: Hypertension type: essential hypertension Qualified Code(s): I10 - Essential (primary) hypertension SNOMED Code(s): 90975666 (10) Restrictive lung disease due to kyphoscoliosis Current Visit: No Status: Chronic SNOMED Code(s): 437163152 - Recommendations Recommendations: Given the clinical picture, MSSA in the urine is likely a contaminant. Await blood cultures to finalize. Await TTE. Discontinue Nafcillin. Start keflex 500mg PO TID x 5 days. Monitor renal function and dose-adjust antibiotics. No further recommendations from the ID team. We will sign off. Please re-consult if needed. Past Med Surg Social Fam HX - Past Medical History Attestation: Yes The following information was validated with the patient. Source: patient, old records reviewed, nursing notes reviewed Medical history: arthritis, atrial fibrillation, CHF, COPD, GERD, hypertension, other Additional medical history: chronic pain, scoliosis, blind,hx of fx femur and knee on rt side. frequent uti, Psychiatric history: anxiety, depression - Past Surgical History Surgical History: cataract, cholecystectomy, hip replacement, orthopedic, other, other Additional surgical history: IM Nailing Bilateral, Right Femur and Knee Surgery, Bladder Surgery - Social History Smoking Status: Never smoker Smokeless Tobacco Status: No Alcohol use: none Drug use: none Occupational status: retired Current living situation: Home, With Family Activity Level: Mostly sedentary Recent Out of Country Travel Within the Last 8 Weeks: No Exposure or Possible Exposure to Illness During Travel: No - Family History Sister History Unknown: Yes Living Status: Hx Family Cardiac Disorders: Yes Father Living Status: Mother Living Status: Consult Discharge Plan - Plan Referrals: Thierno Chen MD [Primary Care Provider] - - Attending Attestation I have personally performed a face to face evaluation on this patient. I have reviewed and agree with the care plan. History and Exam by me shows: This is an addendum to original report dictated by Marry Cook CNP. Please refer to Marry's note for full detail. We were asked to see patient that came in with A. fib with RVR and was found to have staph aureus in the urine. Blood cultures from 03/29/2019 and 04/01/2019 4 sets are no growth to date. Recommendations: Clinically patient stable and has no SIRS criteria and no bacteremia. The urinalysis was contaminated and I am not sure if that had anything to do with that. Patient is not the best historian. At this point I will stop the Silvadene and start Keflex 500 mg by mouth 3 times a day to finish 5-7 days. No further recommendations. Please call if anything changes clinically or any other cultures become back positive.
[2019-04-02] MEDS ORDERED: Perflutren Lipid Microsphere 1.3 ML in 0.9 % Sodium Chloride 8.7 ML IVP ONE (10:53)
--- NOTE | 2019-04-02 12:31 | Internal Med Progress Note ---
Hospitalist Progress Note - Encounter Date of Encounter: 04/02/19 Time of Encounter: 12:29 - Subjective Interval History: She says she feels fine this morning. Not hungry. Infectious disease going to see patient today regarding staph aureus in urine. Heart rate is controlled now that patient on her home Cardizem. - Exam Vitals: Temp Pulse Resp BP Pulse Ox 97.1 F L 60 18 107/56 98 04/02/19 12:09 04/02/19 12:09 04/02/19 12:04/02/19 12:09 04/02/19 12:09 Exam: General: Ill-appearing and in no acute distress. Appears chronically ill with severe scoliosis HEENT: No erythema of posterior pharynx. No exudates. Lymphatics: No mandibular or cervical lymphadenopathy Cardiovascular: RRR. No murmurs. No chest wall tenderness. Lungs: Clear to auscelltation bilaterally. Regular chest rise. Abdomen: Distended with mild lower quadrant tenderness. No rebound or gaurding. Nl bowel sounds. Extremities: No edema. 2+ pulses radial and pedal pulses Skin: No rahses, abrasions, or contusions. Nl cap refill. Psych: Nl attention. 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 Sensation to light touch and pinprick intact. - Assessment and Plan (1) Bacteria in urine Current Visit: Yes Status: Acute Assessment and Plan: Urine culture from outside hospital reported yesterday with growth of staph aureus. Patient with no signs of sepsis although daughter thinks that she is a lot more tired than usual. -Classically, staph aureus and urine is presumed to be of hematogenous spread so blood cultures obtained yesterday and CT imaging. CT imaging non-revealing Blood cultures no growth to date -We will consult infectious disease regarding further workup if this is even needed. PLAN: - Infectious disease consult - Nafcillin - Follow up blood cultures (2) Hypokalemia, gastrointestinal losses Current Visit: Yes Status: Acute Assessment and Plan: In setting of aggressive bowel regimen due to fecal impaction - Replete (3) Atrial fibrillation with RVR Current Visit: Yes Status: Acute Assessment and Plan: History of atrial fibrillation on diltiazem. Had episode of RVR at outside hospital and briefly needed diltiazem drip. Flipped into RVR 04/01 that was likely due to Diltiazem being held the day prior (for unclear reasons). Rates controlled since starting home diltiazem. - Continue home diltiazem (4) Ileus, unspecified Current Visit: Yes Status: Acute Assessment and Plan: Patient with history of ileus following surgeries and recent inability to transfer resulting in fecal impaction presents with concern for vomiting fecal material in the setting of KUB with evidence of small bowel ileus. -Likely fecal impaction possibly with some degree of ileus -Per daughter, this all started when patient broke her knee because she lost the ability to transfer and refuses to have a BM in a bedpan -Suspect this will resolve with aggressive bowel regimen from below -04/01 Patient with many large bowel movements over the last 24 hours and KUB with resolution of ileus. -Still having bowel movements PLAN: - Scheduled senna and lactulose bid - Daughter told to get swanson up to commode once per day to try to get her to have a bowel movement at home (5) Fecal impaction Current Visit: Yes Status: Acute Assessment and Plan: See above (6) Failure to thrive Current Visit: Yes Status: Chronic Assessment and Plan: History of failure to thrive secondary to scoliosis and multiple fractures of her lower extremities leaving her chronically debilitated. - May need resources for higher level of care before discharge DVT Prophylaxis: LMWH - Time Spent with Patient Total time spent is greater than 50% in coordination of care (as documented) at patient's floor/unit and/or counseling patient: Internal Medicine: Result - Labs CBC & Chem 7: 04/02/19 04:18 04/02/19 04:18 Labs: Short CBC 04/02/19 Range/Units 04:18 WBC 9.1 (4.3-11.1) K/mcL Hgb 11.3 L (11.5-15.4) g/dL Hct 35.2 L (35.3-44.9) % Plt Count 254 (140-400) K/mcL BMP 04/02/19 04:18 Sodium 137 Potassium 2.8 L Chloride 92 L Carbon Dioxide 38 H BUN 19 Creatinine 0.83 Glucose 119 H Calcium 8.9 - ABG Interpretation ABG results: PT/INR, D-dimer PT 11.6 Seconds (9.4-12.1) 03/29/19 17:13 - Impressions Impressions Abdomen/Pelvis CT 04/01/19 17:10 IMPRESSION: 1. Multiple fluid filled small bowel loops with liquid stool in the proximal colon suggesting a mild enterocolitis. There is no evidence of obstruction. Moderate retained distal colonic stool. 2. No other acute findings within the abdomen or pelvis. Moderate distention of the urinary bladder. No evidence of obstructive uropathy. 3. Asymmetric right renal atrophy. Nonobstructive right-sided nephrolithiasis. 4. Multilevel vertebral compression fractures with osteopenic, stable. D/ / 04/01/2019 18:35:55 Celestino Lugo MD / [place] Interpreting Provider: Celestino Lugo MD Chest CT 04/01/19 17:10 IMPRESSION: 1. No acute cardiopulmonary process. No abnormality is identified to explain the clinical symptoms. 2. There is extensive volume loss of both lungs with compressive atelectasis bilaterally. Given the difference in technique, this does not appear significantly changed compared to the August 2018 study. 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 3. Incidental findings include minor atherosclerotic vascular calcifications and asymmetric atrophy of the right kidney. D/ / Rich Regalado MD / Rich Regalado MD Interpreting Provider: Rich Regalado MD Consult Discharge Plan - Plan Referrals: Thierno Chen MD [Primary Care Provider] - (6) Failure to thrive Qualifiers: Failure to thrive age range: in adult Qualified Code(s): R62.7 - Adult failure to thrive
[2019-04-02 12:59] LABS: Magnesium 1.8 mg/dL (1.6-2.6)
--- NOTE | 2019-04-02 13:34 | Electrocardiograph Report ---
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
[2019-04-02] MEDS: cephALEXin 500 MG CAPSULE PO SCH ×2 (15:10→20:45)
[2019-04-02 22:49] LABS: BUN/Creatinine Ratio 27 (6-26); Blood Urea Nitrogen 24 mg/dL (8-23); Calcium 8.7 mg/dL (8.6-10.3); Carbon Dioxide 35 mEq/L (23-29); Chloride 94 mEq/L (98-107); Glucose 110 mg/dL (70-105); Osmolality,Calculated 287 (280-300); Potassium 4.1 mEq/L (3.5-5.1); Sodium 136 mEq/L (136-145); eGFR For African Americans > 60 (> 60); eGFR For Non-African Americans 60 (> 60)
[2019-04-03] MEDS: *HR* OxyCODONE/APAP 10/325 TABLET PO SCH ×3 (00:29→12:21)
[2019-04-03] MEDS ORDERED: *HR* Enoxaparin 40 MG/0.4 ML SYRINGE SQ SCH (06:00)
[2019-04-03 07:22] LABS: Hematocrit 35.3 % (35.3-44.9); Mean Corpuscular HGB Conc 31.2 g/dL (31.6-35.5); Mean Corpuscular Hemoglobin 30.1 pg (28.0-33.3); Mean Corpuscular Volume 96.4 fL (83.0-100.0); Mean Platelet Volume 10.5 fL (9.4-12.4); Platelet Count 251 K/mcL (140-400); Red Blood Count 3.66 M/mcL (3.82-4.97); Red Cell Distribution Width 13.3 % (11.5-14.5); White Blood Count 7.6 K/mcL (4.3-11.1)
[2019-04-03 07:30] LABS: BUN/Creatinine Ratio 24 (6-26); Blood Urea Nitrogen 20 mg/dL (8-23); Carbon Dioxide 38 mEq/L (23-29); Chloride 95 mEq/L (98-107); Glucose 97 mg/dL (70-105); Magnesium 1.8 mg/dL (1.6-2.6); Osmolality,Calculated 293 (280-300); Potassium 3.8 mEq/L (3.5-5.1); Sodium 140 mEq/L (136-145); eGFR For African Americans > 60 (> 60); eGFR For Non-African Americans > 60 (> 60)
[2019-04-03] MEDS: clonazePAM 1 MG TABLET PO SCH ×2 (09:43→15:01)
[2019-04-03] MEDS: Sennosides/Docusate Sodium TABLET PO SCH (09:43)
[2019-04-03] MEDS: Aspirin 325 MG TABLET PO SCH (09:44)
[2019-04-03] MEDS: Diltiazem CD (24hr) 120 MG CAPSULE PO SCH (09:44)
[2019-04-03] MEDS: Bisacodyl 10 MG RECTAL SUPPOSITORY RC SCH (09:45)
[2019-04-03] MEDS: cephALEXin 500 MG CAPSULE PO SCH (09:45)
[2019-04-03] MEDS: Lactulose Oral Soln 20 GM/30 ML UDC PO SCH (09:45)
[2019-04-03 10:43] VITALS: BP 101/66
--- NOTE | 2019-04-03 12:24 | Discharge Summary ---
- NOTES TO OUTPATIENT PROVIDER Notes to Outpatient Provider: Patient hospitalized here for ileus. Likely due to use of narcotic med medications. She was treated with aggressive bowel regimen with resolution. She then developed A. fib with RVR and required Cardizem drip briefly. This has now been controlled and patient is tolerating diet well. Her heart rate is also well controlled. She is clinically stable to be discharged home. Patient is not on anticoagulation due to advanced age and poor functional capacity. Patient also has urine positive for MSSA and per infectious disease has been placed on Keflex TID for 7 days. Orders not resulted at time of discharge: Pending orders 04/01/19 17:05 Culture,Blood [BC] Stat Date of Encounter: 04/03/19 Time of Encounter: 12:13 - Discharge Diagnosis (1) Fecal impaction Priority: Primary Status: Acute (2) Atrial fibrillation with RVR Priority: Secondary Status: Acute (3) Ileus, unspecified Priority: Secondary Status: Acute (4) Failure to thrive Priority: Secondary Status: Chronic Qualifiers: Failure to thrive age range: in adult Qualified Code(s): R62.7 - Adult failure to thrive (5) Bacteria in urine Priority: Secondary Status: Acute (6) Hypokalemia, gastrointestinal losses Priority: Secondary Status: Acute Hospital course: Ms. Navarro is a 83 year old female with history of ileus following surgeries and multiple LE fractues resulting in inability to transfer resulting in fecal impaction presents with concern for vomiting fecal material in the setting of KUB with evidence of small bowel ileus. Patient is status post an aggressive bowel regimen and had many large bowel movements during admission with follow-up KUB with resolution of ileus. Figure primary reason patient got fecal impaction was due to inability to transfer to a commode after she broke her right distal femur/proximal tibia and refusal to defecate into a bedpan. Repeat right knee imaging with evidence of healing - should be okay for patient to transfer to a commode although may be limited by pain. Also did not like MiraLAX so was not taking it - switched to lactulose in the hospital and for discharge for goal of 1-2 bowel movements per day. Also on oxycodone at home. Patient was also for discharge 2 days back but she then developed A. fib with RVR and required Cardizem drip briefly. This has now been controlled and patient is tolerating diet well. Her heart rate is also well controlled. She is clinically stable to be discharged home. Patient is not on anticoagulation due to advanced age and poor functional capacity. Patient also has urine positive for MSSA and per infectious disease has been placed on Keflex TID for 7 days. Encouraged daughter to only give pain medication when patient is pain. She will follow-up with her primary care provider. Discharge discussed with: patient, nurse - Time Spent with Patient Total time spent providing and/or coordinating discharge services: Time spent: Greater than 30 minutes (32 min) - Discharge Medications Prescriptions: New Lactulose 10 gm PO BID #2 bottle cephALEXin [Keflex] 500 mg PO TID #18 capsule Lactobacillus Acidophilus [Acidophilus Lactobacilli] 1 each PO BID #20 capsule Continued Diltiazem CD (24hr) [Cardizem CD] 120 mg PO DAILY #30 cap.er.24h Cholecalciferol (Vitamin D3) [Vitamin D] 1,000 unit PO DAILY Aspirin 325 mg PO BID Albuterol Sulfate [Albuterol Inhaler] 2 puff IH Q4HR PRN PRN Reason: Shortness Of Breath Docusate [Colace] 100 mg PO BID PRN PRN Reason: Constipation ClonazePAM [Klonopin] 1 mg PO TID Omeprazole [PriLOSEC] 20 mg PO DAILY OxyCODONE/APAP 5/325 [Percocet 5/325 MG] 1 each PO BID PRN PRN Reason: Breakthrough Pain OxyCODONE/APAP 10/325 [Percocet 10/325 MG] 1 each PO Q6HR #10 tablet Nitroglycerin 0.1 mg TD 0730 patch.td24 BuPROPion [Wellbutrin] 75 mg PO BID Sennosides/Docusate Sodium [Docusate Sodium-Sennosides Tab] 1 each PO BID #14 tablet Discontinued Amoxicillin [Amoxil] 500 mg PO BID Polyethylene Glycol 3350 [MiraLAX] 17 gm PO DAILY PRN PRN Reason: Constipation Home Medications: Albuterol Sulfate [Albuterol Inhaler] 2 puff IH Q4HR PRN 07/19/15 [History] Aspirin 325 mg PO BID 07/19/15 [History] Cholecalciferol (Vitamin D3) [Vitamin D] 1,000 unit PO DAILY 07/19/15 [History] ClonazePAM [Klonopin] 1 mg PO TID 07/19/15 [History] Docusate [Colace] 100 mg PO BID PRN 07/19/15 [History] Diltiazem CD (24hr) [Cardizem CD] 120 mg PO DAILY #30 cap.er.24h 07/29/15 [Rx] Omeprazole [PriLOSEC] 20 mg PO DAILY 09/08/15 [History] OxyCODONE/APAP 5/325 [Percocet 5/325 MG] 1 each PO BID PRN 08/13/18 [History] Nitroglycerin 0.1 mg TD 0730 patch.td24 08/16/18 [Rx] OxyCODONE/APAP 10/325 [Percocet 10/325 MG] 1 each PO Q6HR #10 tablet 08/16/18 [Rx] BuPROPion [Wellbutrin] 75 mg PO BID 03/19/19 [History] Sennosides/Docusate Sodium [Docusate Sodium-Sennosides Tab] 1 each PO BID #14 tablet 03/19/19 [Rx] Lactulose 10 gm PO BID #2 bottle 04/01/19 [Rx] Lactobacillus Acidophilus [Acidophilus Lactobacilli] 1 each PO BID #20 capsule 04/03/19 [Rx] cephALEXin [Keflex] 500 mg PO TID #18 capsule 04/03/19 [Rx] Allergies/Adverse Reactions: Allergy/AdvReac Type Severity Reaction Status Date / Time codeine Allergy Hives Verified 03/19/19 18:10 Buspirone AdvReac Gastrointestinal Verified 03/19/19 18:10 Upset nitrofurantoin AdvReac Gastrointestinal Verified 03/19/19 18:10 [From Macrodantin] Upset promethazine AdvReac Confusion Verified 03/19/19 18:10 Sulfa (Sulfonamide AdvReac Rash Verified 03/19/19 18:10 Antibiotics) tramadol AdvReac Gastrointestinal Verified 03/19/19 18:10 Upset Date of admission: 04/01/19 20:02 Primary care physician: Thierno Chen MD Consults: 03/29/19 18:18 Consult to Coronary Clinical Specialist [CONS] Routine Reason for Consult: Home helpers HH, Sen's oxygen 04/02/19 08:02 Consult to Infectious Diseases [CONS] Routine Consulting Provider: Infectious Disease Mary Reason for Consult: MSSA in urine, concern for MSSA bacteremia of unknwon etiology Call Completed: Yes Discharging clinician: Richard Henderson Anticipated date of discharge: 04/03/19 - Constitutional Vitals: Temp Pulse Resp BP Pulse Ox 97.6 F 89 15 101/66 96 04/03/19 10:41 04/03/19 10:41 04/03/19 10:41 04/03/19 10:41 04/03/19 10:41 General appearance: Present: cooperative, pleasant Exam: General: Patient is alert, no acute distress, Respiratory: Good respiratory effort. Normal breath sounds. No wheezing or crackles. Cardiovascular: Regular rate and rhythm. s1 and s2 normal No clicks, rubs, gallops, or murmurs. No pedal edema Abdomen: Abdomen is soft, nontender. Bowel sounds are present Musculoskeletal: Spontaneously moving all extremities Skin: warm, dry, intact. Neuro: Alert normal cranial nerves, no focal deficits - Patient Status Disposition: Home Health Service Condition: Good Functional capacity at discharge: wheelchair bound Overall status at discharge: patient is progressing back to baseline - Discharge Instructions Follow Up With: Thierno Chen MD [Primary Care Provider] - (1 week) - Diet and Activity Activity: as per physical therapy, increase activity as tolerated, wear oxygen at all times Diet: low fat, low cholesterol, low salt diet
--- NOTE | 2019-04-03 12:32 | Physician Discharge Referral ---
Home Health/Hosp Referral Info Transfer to: Home Health Provider in Charge Post Discharge: PCP - Diagnosis (1) Ileus, unspecified Priority: Primary Status: Acute (2) Fecal impaction Priority: Secondary Status: Acute (3) Atrial fibrillation with RVR Priority: Secondary Status: Acute (4) Failure to thrive Priority: Secondary Status: Chronic (5) Bacteria in urine Priority: Secondary Status: Acute (6) Hypokalemia, gastrointestinal losses Priority: Secondary Status: Acute - Respiratory Orders Oxygen / L per min (2) Smoking Cessation: Smoking cessation has been advised. For more information, call the [place] Tobacco Quit Line at 2-502-ANGL-NOW. - Diet/Nutrition Diet/Nutrition Orders: Cardiac - Activity Activity Orders: Chair, Walker - Services Needed Following services are medically necessary services: Nursing, Home Health Aide, Physical Therapy, Occupational Therapy - Transfer Medications Prescriptions: Lactobacillus Acidophilus [Acidophilus Lactobacilli] 1 each PO BID #20 capsule cephALEXin [Keflex] 500 mg PO TID #18 capsule Home Medications: Albuterol Sulfate [Albuterol Inhaler] 2 puff IH Q4HR PRN 07/19/15 [History] Aspirin 325 mg PO BID 07/19/15 [History] Cholecalciferol (Vitamin D3) [Vitamin D] 1,000 unit PO DAILY 07/19/15 [History] ClonazePAM [Klonopin] 1 mg PO TID 07/19/15 [History] Docusate [Colace] 100 mg PO BID PRN 07/19/15 [History] Diltiazem CD (24hr) [Cardizem CD] 120 mg PO DAILY #30 cap.er.24h 07/29/15 [Rx] Omeprazole [PriLOSEC] 20 mg PO DAILY 09/08/15 [History] OxyCODONE/APAP 5/325 [Percocet 5/325 MG] 1 each PO BID PRN 08/13/18 [History] Nitroglycerin 0.1 mg TD 0730 patch.td24 08/16/18 [Rx] OxyCODONE/APAP 10/325 [Percocet 10/325 MG] 1 each PO Q6HR #10 tablet 08/16/18 [Rx] BuPROPion [Wellbutrin] 75 mg PO BID 03/19/19 [History] Sennosides/Docusate Sodium [Docusate Sodium-Sennosides Tab] 1 each PO BID #14 tablet 03/19/19 [Rx] Lactulose 10 gm PO BID #2 bottle 04/01/19 [Rx] Lactobacillus Acidophilus [Acidophilus Lactobacilli] 1 each PO BID #20 capsule 04/03/19 [Rx] cephALEXin [Keflex] 500 mg PO TID #18 capsule 04/03/19 [Rx] Allergies/Adverse Reactions: Allergy/AdvReac Type Severity Reaction Status Date / Time codeine Allergy Hives Verified 03/19/19 18:10 Buspirone AdvReac Gastrointestinal Verified 03/19/19 18:10 Upset nitrofurantoin AdvReac Gastrointestinal Verified 03/19/19 18:10 [From Macrodantin] Upset promethazine AdvReac Confusion Verified 03/19/19 18:10 Sulfa (Sulfonamide AdvReac Rash Verified 03/19/19 18:10 Antibiotics) tramadol AdvReac Gastrointestinal Verified 03/19/19 18:10 Upset Certification: Further, I certify that my clinical findings support that this patient is homebound (i.e. absences from home require considerable and taxing effort and are for medical reasons or jewish services or infrequently or short duration when for other reasons) because: Homebound Reason: Patient requires assistance of a person or device to safely leave home, Leaving home requires considerable and taxing effort due to condition Attestation: My signature below is to certify that this patient is under my care and that I, or nurse practitioner, or a physician's per diem physical therapist assistant working with me, has a [id number] encounter with this patient.
== END 2019-04-03 15:25 | disposition home health service (06) | DRG 247 ==
LOC: 2ANU → SUATTDRO 16:19
PROVIDERS: ADMIT Internal Medicine; ATTEND Internal Medicine